=== PATIENT | male | born 1985 | race Caucasian/White ===

== ENCOUNTER 2022-10-06 23:19 | Emergency (ER) | payer OTHER ==
[~2022-10-06] VITALS: Ht 180.3 cm; Wt 97.5 kg
[2022-10-06 23:45] VITALS: BP 143/96; PULSE 105; RESP 20; TEMP 98; O2SAT 98
[2022-10-07] MEDS ORDERED: HYDROcodone/APAP 5/325 MG 1 TAB TAB PO ONE (00:30)
[2022-10-07] MEDS ORDERED: KETOROLAC 30 MG/ML VIAL IM ONE (00:30)
[2022-10-07] MEDS ORDERED: ACET-8905 PO (00:55)
[2022-10-07] MEDS ORDERED: AMOX1TAB8 PO (00:55)
[2022-10-07] MEDS ORDERED: NAPR-54 PO (00:55)
[2022-10-07 01:47] VITALS: BP 143/96; PULSE 105; RESP 20; TEMP 98; O2SAT 98
== END 2022-10-07 01:47 | disposition home or self-care (01) ==
LOC: MED 23:19
DX: L08.89 Other specified local infections of the skin and subcutaneous tissue (principal); M79.645 Pain in left finger(s)
CPT/HCPCS: 29130; 73140; 96372; 99284; J1885; Q0092